=== PATIENT | male | born 1990 | race Caucasian/White ===

== ENCOUNTER 2017-05-22 16:09 | Emergency (ER) | payer OTHER ==
[~2017-05-22] VITALS: Ht 177.8 cm; Wt 83.5 kg
== END 2017-05-22 17:21 | disposition home or self-care (01) ==
LOC: ER 16:09
DX: M46.28 Osteomyelitis of vertebra, sacral and sacrococcygeal region (principal)

== ENCOUNTER 2017-05-26 10:30 | Emergency (ER) | payer OTHER ==
[~2017-05-26] VITALS: Ht 170.2 cm; Wt 83.9 kg
[2017-05-26] MEDS ORDERED: FLAGYL500MG PO (11:27)
[2017-05-26] MEDS ORDERED: LEVAQUIN750 MG PO (11:27)
[2017-05-26] MEDS ORDERED: ULTRAM50 MG PO (11:27)
== END 2017-05-26 13:33 | disposition home or self-care (01) ==
LOC: ER 10:30
DX: L05.01 Pilonidal cyst with abscess (principal)

== ENCOUNTER 2022-04-16 12:14 | Emergency (ER) | payer OTHER ==
[~2022-04-16] VITALS: Ht 175.3 cm; Wt 86.2 kg
[~2022-04-16 12:14] MED LIST: FLAGYL500MG PO; LEVAQUIN750 MG PO; ULTRAM50 MG PO
== END 2022-04-16 14:02 | disposition home or self-care (01) ==
LOC: ER 12:14
DX: B34.9 Viral infection, unspecified (principal); Z20.822 Contact with and (suspected) exposure to COVID-19

== ENCOUNTER 2023-12-17 22:18 | Emergency (ER) | payer OTHER ==
[~2023-12-17] VITALS: Ht 175.3 cm; Wt 87.1 kg
[2023-12-18] MEDS ORDERED: KETOROLAC TROMETHAMINE 10 MG TABLET PO STA (03:54)
[2023-12-18] MEDS ORDERED: KETOROLAC TROMETHAMINE 10 MG TABLET PO ONE (04:03)
[2023-12-18 04:13] LABS: PH,URINE 5.5 (5.0-8.0); URINE APPEARANCE Clear; URINE BILIRRUBIN Negative (NEGATIVE); URINE BLOOD Negative; URINE COLOR Yellow; URINE GLUCOSE Negative (NEGATIVE); URINE KETONE Negative (NEGATIVE); URINE LEUKOCYTE Negative; URINE NITRATE Negative; URINE PROTEIN Negative (NEGATIVE)
[2023-12-18 04:17] LABS: URINE BACTERIA 25.1 uL (0.0-1933); URINE RBC 3.3 uL (0.0-20.8); URINE WBC 3.2 uL (0.0-23.2)
[2023-12-18 04:25] LABS: URINE CAST 0.15 uL (0.0-1.40); URINE EPITHELIAL CELLS 0.6 uL (0.0-38.8)
[2023-12-18] MEDS ORDERED: KETO10TA2 PO (05:07)
[2023-12-18] MEDS ORDERED: NORFLEX100MG PO (05:07)
== END 2023-12-18 05:12 ==
LOC: ER 22:19
PROVIDERS: General Practice
DX: M54.50 Low back pain, unspecified (principal)